=== PATIENT | male | born 1985 | race Caucasian/White ===

== ENCOUNTER 2019-12-30 11:52 | Emergency (ER) | payer OTHER, SELFPAY ==
[2019-12-30 12:21] VITALS: BP 110/77; PULSE 80; RESP 16; TEMP 36.2; O2SAT 98
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
[2019-12-30 14:31] VITALS: BP 112/78; PULSE 70; RESP 14; O2SAT 99
== END 2019-12-30 14:32 | disposition home or self-care (01) ==
PROVIDERS: Emergency Provider Nurse Practitioner Family
DX: S16.1XXA Strain of muscle, fascia and tendon at neck level, initial encounter (principal); M54.6 Pain in thoracic spine; V87.7XXA Person injured in collision between other specified motor vehicles (traffic), initial encounter
CPT/HCPCS: 99281; 99283

== ENCOUNTER 2020-06-19 03:17 | Emergency (ER) | payer OTHER, SELFPAY ==
--- NOTE | 2020-06-19 03:21 | ED_ITS ---
HPI - Back Pain/Injury General Chief Complaint: Back Pain/Injury Stated Complaint: low back pain Time Seen by Provider: 06/19/20 03:20 Source: patient Mode of arrival: Wheelchair Limitations: no limitations History of Present Illness HPI Narrative: 34-year-old male nonsmoker with noncontributory medical history presents with his in the chief complaint of severe midline back pain while wrestling earlier today. He was attempting to lift another person and felt pain in the midline of his back in the lumbar region. He did not fall and had no traumatic injury. He denies any radiation of the pain, denies any numbness, tingling or weakness, denies any loss of control of bowel or bladder and denies any footdrop. His pain is relatively minor when remaining still and significantly increases with any motion. MD Complaint: back pain and back injury Onset (ago): hour(s) Duration: intermittent Similar Symptoms Previously: No Location: lumbar spine Severity: moderate Quality: stabbing Radiation: none Relieving factors: immobilization Exacerbating factors: movement Context: while lifting Associated symptoms: denies other symptoms Treatments prior to arrival: NSAIDS Related Data Previous Rx's Medication Instructions Recorded cyclobenzaprine 10 mg PO BID PRN #10 tab 12/30/19 diazepam [Valium] 5 mg PO BID-QID PRN #10 tab 06/19/20 hydrocodone-acetaminophen 1 tab PO Q4-6H PRN #10 tab 06/19/20 ketorolac 10 mg PO Q6H PRN #14 tab 06/19/20 Allergies Allergy/AdvReac Type Severity Reaction Status Date / Time No Known Drug Allergies Allergy Verified 12/30/19 12:21 Review of Systems Constitutional Constitutional: Denies chills, Denies fatigue, Denies fever(s), Denies frequent falls, Denies lethargy and Denies weakness Eyes Eyes: Denies change in vision, Denies eye discharge, Denies irritation and Denies loss of vision ENT Ears, Nose, Mouth, and Throat: Denies change in voice, Denies dizziness, Denies neck pain, Denies sore throat and Denies throat swelling Cardiovascular Cardiovascular: Denies chest pain, Denies irregular heart rhythm, Denies lightheadedness, Denies palpitations, Denies dyspnea, Denies dyspnea on exertion and Denies orthopnea Respiratory Respiratory: Denies cough, Denies dyspnea, Denies dyspnea on exertion and Denies wheezing Gastrointestinal Gastrointestinal: Denies abdominal pain, Denies change in bowel habits, Denies diarrhea, Denies nausea and Denies vomiting Musculoskeletal Musculoskeletal: Reports back pain, Denies neck pain and Denies numbness Integumentary/Breasts Skin/Breast: Denies pruritus, Denies erythema, Denies rash and Denies wounds Neurologic Neurologic: Denies behavioral changes, Denies confusion, Denies dizziness, Denies frequent falls, Denies loss of vision, Denies numbness and Denies weakness Psychiatric Psychiatric: Denies anxiety, Denies behavioral changes, Denies confusion, Denies depression, Denies homicidal ideation and Denies suicidal ideation Endocrine Endocrine: Denies fatigue, Denies flushing and Denies palpitations Hematologic/Lymphatic Hematologic/Lymphatic: Denies easy bruising Allergic/Immunologic Allergic/Immunologic: Denies urticaria, Denies throat swelling and Denies wheezing Patient History Social History Smoking Status: Never smoker Smoking Status: Never smoker alcohol intake frequency: a few times a month Alcohol type: beer Substance Use Type: does not use Exam Narrative Exam Narrative: GENERAL: [34] year old patient appears stated age. Well- nourished, well-developed patient, in mild distress. Obviously in pain, when moving HEAD: Atraumatic. Normocephalic. EYES: Pupils equal round and reactive. Extraocular motions intact. No scleral icterus. No injection or drainage. ENT: Nose without bleeding, purulent drainage. Throat without erythema, tonsillar hypertrophy or exudate. Airway patent. NECK: Trachea midline. Non tender CARDIOVASCULAR: Regular rate and rhythm without murmurs, gallops, or rubs. RESPIRATORY: Clear to auscultation. Breath sounds equal bilaterally. No wheezes, rales, or rhonchi. GASTROINTESTINAL: Abdomen soft, non-tender, nondistended. EXTREMITIES: No edema or joint tenderness. BACK: Nontender without deformity or crepitance. No flank tenderness. Bilateral lower extremity strength 5/5. No saddle anesthesia. Bilateral patellar reflexes 2+ NEURO: AOx3. SKIN: No rash or erythema of visible areas Initial Vital Signs Initial Vital Signs: Vital Signs Temperature 98.0 F 06/19/20 03:25 Pulse Rate 84 06/19/20 03:25 Respiratory Rate 20 06/19/20 03:25 Blood Pressure 132/83 06/19/20 03:25 Pulse Oximetry 98 06/19/20 03:25 Course Course Course Narrative: patient improved with above stated therapies Orders Ordered: Discontinued Medications Hydrocodone Bitart/Acetaminophen (Vicodin 5/325 Prepack) 1 bottle MISC SEEINSTR ONE Stop: 06/19/20 05:07 Last Admin: 06/19/20 05:20 Dose: 1 bottle Documented by: SHALINI Diazepam (Valium) 5 mg PO NOW ONE Stop: 06/19/20 05:07 Last Admin: 06/19/20 05:20 Dose: 5 mg Documented by: SHALINI Hydromorphone HCl (Dilaudid) 1 mg IM NOW ONE Stop: 06/19/20 03:51 Last Admin: 06/19/20 04:01 Dose: 1 mg Documented by: SHALINI Ketorolac Tromethamine (Toradol) 60 mg IM NOW ONE Stop: 06/19/20 03:51 Last Admin: 06/19/20 04:00 Dose: 60 mg Documented by: SHALINI Vital Signs Vital signs: Vital Signs - 8 hr 06/19/20 03:25 06/19/20 05:25 Temperature 98.0 F Pulse Rate 84 71 Respiratory Rate 20 16 Blood Pressure 132/83 Pulse Oximetry 98 100 Discharge Plan Departure Patient Disposition: Home Clinical Impression: Back pain due to injury Discharge Date/Time: 06/19/20 05:25 Instructions: DI for Back Strain or Sprain Activity Restrictions/Additional Instructions: *You have been diagnosed with [acute back pain without radiculopathy] *What to do: *Take medications as directed *Follow up with your primary care provider in 2-3 days, call for an appointment. Let them know you were seen in the Emergency Department and that we ask that you be seen in follow up *Return to ER if you should have any new, worsening or concerning symptoms, such as [increasing pain, weakness severe lower extremity, inability to control bowel or bladder, or other bothersome symptoms] Prescriptions: New hydrocodone-acetaminophen 5-325 mg tablet 1 tab PO Q4-6H PRN (Reason: pain) Qty: 10 RF: 0 ketorolac 10 mg tablet 10 mg PO Q6H PRN (Reason: pain) Qty: 14 RF: 0 diazepam [Valium] 5 mg tablet 5 mg PO BID-QID PRN (Reason: muscle spasm) Qty: 10 RF: 0 No Action cyclobenzaprine 10 mg tablet 10 mg PO BID PRN (Reason: muscle spasm) Qty: 10 RF: 0
[2020-06-19 03:25] VITALS: BP 132/83; PULSE 84; RESP 20; TEMP 36.7; O2SAT 98; BMI 30.2
[2020-06-19] MEDS: KETOROLAC 60 MG/2 ML VIAL IM (04:00)
[2020-06-19] MEDS: HYDROMORPHONE 1 MG INJ IM (04:01)
[2020-06-19] MEDS: diazePAM 5 MG TABLET PO (05:20)
[2020-06-19] MEDS: HYDROCODONE/ACET 5/325 PREPACK 1 BOTTLE MISC (05:20)
[2020-06-19 05:25] VITALS: PULSE 71; RESP 16; O2SAT 100
== END 2020-06-19 05:25 | disposition home or self-care (01) ==
PROVIDERS: Emergency Provider Emergency Medicine
DX: M54.5 Low back pain (principal); Y93.72 Activity, wrestling
CPT/HCPCS: 96372; 99283; J1170; J1885

== ENCOUNTER → 2020-07-28 08:31 | Outpatient (CLI) | payer OTHER, SELFPAY ==
--- NOTE | 2020-07-28 | DI.RAD.S_ITS ---
PROCEDURE: [place] ANKLE INJECTION MR/CT RT INDICATIONS: Sprain of other ligament of right ankle, subsequen TECHNIQUE: After informed consent had been obtained, the ankle was examined fluoroscopically in the lateral projection, and a site for needle placement chosen for entry into the tibiotalar joint from an anterior approach. Care was taken to locate the dorsalis pedis artery beforehand. The skin was prepped and draped in a sterile fashion, and 1% Xylocaine infiltrated from skin down to joint capsule. A hypodermic needle was inserted into the joint, and a small amount of iodinated contrast media injected to confirm intra-articular placement of the needle tip. This was followed by approximately 5 mL dilute solution of a gadolinium containing MR contrast agent. The needle was removed and a dressing was applied. The patient was given postprocedural instructions and sent to the MR suite for MR imaging. The attending radiologist was present during invasive portions of the procedure, and performed all intra-articular injections. FINDINGS: A single fluoroscopic spot image demonstrates intra-articular location of injected iodinated contrast. IMPRESSION: Successful fluoroscopically guided administration of dilute Gadolinium solution into the tibiotalar joint for MR arthrogram. Dictated by: Juany Saunders MD, PhD on 07/28/2020 at 10:34 Approved by: Juany Saunders MD, PhD on 07/28/2020 at 10:34
--- NOTE | 2020-07-28 | DI.MRI.S_ITS ---
PROCEDURE: MR ANKLE RT W CON INDICATIONS: Sprain of other ligament of right ankle, subsequen TECHNIQUE: After the administration of 5 mL of dilute intra-articular Gadolinium contrast into the tibiotalar joint, sagittal T1 spin echo with and without fat saturation, axial T1 fast spin echo with fat saturation and T2 fast spin echo with fat saturation, coronal T1 spin echo and T2 fast spin echo with fat saturation through the ankle. COMPARISON: [facility], , [place] ANKLE INJECTION MR/CT RT, 07/28/2020, 8:06. FINDINGS: Image quality: Excellent. Bones and joints: No bone marrow contusions or fractures. No hindfoot coalitions. No osteochondral injuries of the talar dome. Medial structures: Posterior tibialis intact. Minimal posterior tibialis tenosynovitis. Flexor digitorum longus intact. Flexor hallucis longus tendon intact. The posterior tibial neurovascular bundle appears normal within the tarsal tunnel, without extrinsic mass effect. Deltoid ligament complex appears intact. The spring ligament appears intact. Lateral structures: Anterior talofibular ligament intact. Calcaneofibular ligament intact. Posterior talofibular ligament intact. Anterior and posterior tibiofibular ligaments appear intact, as is the intermalleolar ligament. Tibiofibular syndesmosis is normal in width at 2 mm or less. Peroneus longus and brevis tendons appear normal. Bony peroneal tubercle and retrotrochlear prominence are normal in size. Sinus tarsi demonstrates normal fatty signal, without edema, fibrosis, or cyst formation. Anterior structures: Tibialis anterior intact. Extensor hallucis longus intact. Extensor digitorum longus tendon intact. Dorsal talonavicular ligament appears intact. Posterior and plantar structures: Achilles tendon is intact. Medial and lateral bands of the plantar fascia intact. No abductor digiti quinti muscle atrophy to suggest [place] neuropathy. No loose body identified. IMPRESSION: Mild posterior tibialis tenosynovitis. No loose body identified Elsewhere, no internal derangement Dictated by: Usama Estrada M.D. on 07/28/2020 at 10:39 Approved by: Usama Estrada M.D. on 07/28/2020 at 11:11
== END ==
DX: S93.491D Sprain of other ligament of right ankle, subsequent encounter (principal); M65.871 Other synovitis and tenosynovitis, right ankle and foot; X58.XXXD Exposure to other specified factors, subsequent encounter
CPT/HCPCS: 20605; 73722; 77002